=== PATIENT | female | born 1955 | race Caucasian/White ===

== ENCOUNTER 2018-02-05 09:56 | Emergency (ER) | payer OTHER ==
[2018-02-05 10:04] VITALS: TEMP 98.3; BMI 34.8
--- NOTE | 2018-02-05 10:34 | PDOC ---
History of Present Illness - General Chief Complaint: Shortness of Breath Stated Complaint: SOB (PCP SENT) Time Seen by Provider: 02/05/18 10:10 History Source: Patient Exam Limitations: No Limitations - History of Present Illness Initial Comments: 02/05/18 10:57 Patient is a 62F with history of crohn's disease here today after being referred by her PCP for an abnormal EKG. Patient states that she went to her primary care office for a sore throat, cough and shortness of breath where she was diagnosed with pharyngitis and treated with azithromycin. An EKG was done which showed t-wave inversions in III and avf, unknown if this was new. Patient denies chest pain and states that she's been tolerating her secretions. Rapid strep was done that was negative at PCP office. Denies fevers, chills, nausea, vomiting. Endorses headache over past two days. No history of blood clots, did travel from [place] 3 days ago. Past History - Past Medical History Allergies/Adverse Reactions: Allergies Allergy/AdvReac Type Severity Reaction Status Date / Time No Known Allergies Allergy Verified 02/05/18 10:00 Home Medications: Ambulatory Orders Dextroamphetamine/Amphetamine [Adderall 10 mg Tablet] 10 mg PO BID 02/05/18 COPD: No GI Disorders: Yes (celiac) Other medical history: ADHD - Suicide/Smoking/Psychosocial Hx Smoking History: Former smoker Have you smoked in the past 12 months: No Information on smoking cessation initiated: No Hx Alcohol Use: No Drug/Substance Use Hx: No Review of Systems - Review of Systems Comments:: 02/05/18 11:02 GENERAL/CONSTITUTIONAL: No fever or chills. No weakness. HEAD, EYES, EARS, NOSE AND THROAT: No change in vision. Positive for sore throat. CARDIOVASCULAR: No chest pain. Positive for shortness of breath RESPIRATORY: Positive for cough. Negative for wheezing, or hemoptysis. GASTROINTESTINAL: No nausea, vomiting, diarrhea or constipation. GENITOURINARY: No dysuria, frequency, or change in urination. MUSCULOSKELETAL: No joint or muscle swelling or pain. No neck or back pain. SKIN: No rash NEUROLOGIC: Positive for headache. Negative for vertigo, loss of consciousness, or change in strength/sensation. ENDOCRINE: No increased thirst. No abnormal weight change HEMATOLOGIC/LYMPHATIC: No anemia, easy bleeding, or history of blood clots. ALLERGIC/IMMUNOLOGIC: No hives or skin allergy. *Physical Exam - Vital Signs Last Vital Signs Temp Pulse Resp BP Pulse Ox 98.3 F 89 17 151/108 98 02/05/18 10:00 02/05/18 10:00 02/05/18 10:00 02/05/18 10:00 02/05/18 10:00 ED Treatment Course - LABORATORY CBC & Chemistry Diagram: 02/05/18 10:21 02/05/18 11:00 - RADIOLOGY Radiology Studies Ordered: Category Date Time Status CHEST X-RAY PORTABLE* [RAD] Stat Radiology 02/05/18 10:22 Ordered Medical Decision Making - Medical Decision Making 02/05/18 11:03 Patient is a 62F with history of crohn's disease here today with upper respiratory infection symptoms. Vital signs stable and normal. EKG findings at PCP office mildly concerning. Will do cardiac workup with 1 trop, currently no chest pain. EKG shows normal sinus rhythm with normal rate, st inversions in III, aVF, V3, same as PCP office. No st elevations/depressions. Normal intervals. 02/05/18 12:04 Laboratory Tests 02/05/18 02/05/18 02/05/18 10:21 10:55 11:00 WBC 8.8 D Hgb 14.4 Plt Count 193 INR 1.02 Troponin I < 0.02 CBC normal. CMP reassuring. Trop undetectable. CXR shows no acute cardiopulmonary process. 02/05/18 12:07 Patient reassessed, continues to be chest pain free. Will discharge with return precautions and instruction to follow up with PCP. *DC/Admit/Observation/Transfer Diagnosis at time of Disposition: Nonspecific ST-T wave electrocardiographic changes - Discharge Dispostion Disposition: HOME Condition at time of disposition: Good Admit: No - Referrals Referrals: Blanca Chavis MD [Primary Care Provider] - - Patient Instructions Additional Instructions: You were seen today in the ED for EKG abnormalities. Your EKG did show changes, but your lab work and chest x-ray show no evidence of an acute event. Please follow up with your primary care provider this week. Please return if you have any new, worsening or concerning symptoms. - Post Discharge Activity
[2018-02-05 10:40] LABS: BASO % 0.6 % (0-2.0); EOS % 2.8 % (0-4.5); HEMATOCRIT 42.4 % (32.4-45.2); HEMOGLOBIN 14.4 GM/dL (10.7-15.3); LYMPH % 12.7 % (8-40); MCH 29.4 pg (25.7-33.7); MEAN CELL VOLUME 86.6 fl (80-96); MEAN PLT VOLUME 8.6 fl (7.5-11.1); MONO % 9.4 % (3.8-10.2); NEUT % 74.5 % (42.8-82.8); PLATELET COUNT 193 K/MM3 (134-434); RBC 4.89 M/mm3 (3.60-5.2); RDW 14.4 % (11.6-15.6); WHITE BLOOD COUNT 8.8 K/mm3 (4.0-10.0)
[2018-02-05] MEDS ORDERED: ACETAMINOPHEN 325 MG TABLET (FP) PO ONE (10:49)
[2018-02-05] MEDS ORDERED: ACETAMINOPHEN 325 MG TABLET (FP) ONE (10:59)
[2018-02-05 11:22] LABS: INR 1.02 (0.82-1.09); PROTHROMBIN TIME (PATIENT) 11.5 SEC (9.7-13.0)
[2018-02-05 11:22] LABS: ALBUMIN 3.8 g/dl (3.4-5.0); ANION GAP 5 (8-16); BLOOD UREA NITROGEN 11 mg/dL (7-18); CALCIUM 8.6 mg/dL (8.5-10.1); CHLORIDE 108 mmol/L (98-107); CO2 29 mmol/L (21-32); CREATININE 0.7 mg/dL (0.55-1.02); GLUCOSE,RANDOM 90 mg/dL (74-106); MAGNESIUM 2.3 mg/dL (1.8-2.4); POTASSIUM 3.8 mmol/L (3.5-5.1); SGOT/AST 28 U/L (15-37); SGPT/ALT 37 U/L (12-78); SODIUM 142 mmol/L (136-145)
[2018-02-05 11:25] LABS: ALK PHOS 126 U/L (45-117)
--- NOTE | 2018-02-05 12:14 | PDOC ---
Attending Attestation - Resident Resident Name: EricksonGene varela - ED Attending Attestation I have performed the following: I have examined & evaluated the patient, The case was reviewed & discussed with the resident, I agree w/resident's findings & plan - HPI HPI: 02/05/18 12:07 62-year-old female with no significant past medical history presents from family and he office for evaluation of EKG changes. Patient presented there for throat pain and laryngitis the last 1-2 days, was diagnosed with pharyngitis and prescribed antibiotics but an EKG was performed that showed T-wave inversions in 3 and aVF, there was no prior EKG available for for comparison so she was sent to the ED for evaluation. 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 She recently traveled to [place] and return last week but has no signs or symptoms of DVT. She has no associated cough with her throat pain. - Physicial Exam PE: 02/05/18 12:10 Vital signs are normal, O2 sat is normal Well-appearing, speaking full sentences, voice is a bit hoarse, oropharynx is erythematous Heart and lungs are clear No leg swelling or calf tenderness - Medical Decision Making 02/05/18 12:10 Patient seen and evaluated with the resident. I agree with the overall evaluation, assessment, and management with the following summary of visit: 62-year-old female with EKG changes from clinic, no cardiopulmonary complaints. Positive pharyngitis, otherwise exam is normal. Labs are within normal limits including troponin Chest x-ray is normal EKG shows persistent T-wave inversions in 3 and aVF, but no ST changes. There are no prior EKGs available for comparison. In light of isolated asymptomatic and nonspecific EKG changes, can follow-up with cardiology and a PCP. 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 Heart Score/ECG Review #1 ECG reviewed & interpreted by me at: 10:12 General ECG Interpretation: Sinus Rhythm, Normal Rate (85), Normal Intervals ( qtc 456), No acute ischemic changes (TWI III/AVF, V3.) Compared to previous ECG there are: Previous ECG unavail (EKG performed in office is unchanged)
[2018-02-05 12:30] VITALS: BP 135/89; PULSE 83
--- NOTE | 2018-02-05 12:37 | EKG ---
Test Reason : Blood Pressure : / mmHG Vent. Rate : 085 BPM Atrial Rate : 085 BPM P-R Int : 140 ms QRS Dur : 082 ms QT Int : 384 ms P-R-T Axes : 036 025 -17 degrees QTc Int : 456 ms NORMAL SINUS RHYTHM ISCHEMIA ABNORMAL ECG WHEN COMPARED WITH ECG OF 16-JUN-2016 01:31, T WAVE INVERSION NOW EVIDENT IN ANTERIOR LEADS Confirmed by NILSA RUSSELL MD ([id number]) on 02/05/2018 12:37:31 PM Referred By: Confirmed By:NILSA RUSSELL MD
== END 2018-02-05 12:30 | disposition home or self-care (01) ==
LOC: JER 09:56
DX: R94.31 Abnormal electrocardiogram [ECG] [EKG] (principal); J06.9 Acute upper respiratory infection, unspecified; K90.0 Celiac disease; K86.81 Exocrine pancreatic insufficiency
CPT/HCPCS: 36415; 71045-TC-FY; 80053; 82550; 83735; 84484; 85025; 85610; 93005; 93010; 99285-25

== ENCOUNTER 2019-10-18 08:45 | Emergency (ER) | payer OTHER ==
[2019-10-18 09:00] VITALS: BP 132/93; PULSE 86; TEMP 97.5; BMI 36.5
--- NOTE | 2019-10-18 09:40 | PDOC ---
History of Present Illness - General Chief Complaint: Wound Stated Complaint: RT HAND INFECTION Time Seen by Provider: 10/18/19 09:06 History Source: Patient Exam Limitations: No Limitations - History of Present Illness Initial Comments: 10/18/19 09:35 Pt is a 64 y/o female with a history of celiac disease who presents to the ED with a R middle finger infection that she states started on 09/20/19. She states that she was "impalled" with a wood sliver on the R middle finger, palmar aspect. She states that her daughter tried to remove the sliver but was unsuccessful. She admits her daughter used a "surgical knife" and cut about 1/ 2 deep without any success. She states she had an infection in her hand which she cured with warm soaks. She saw her primary doctor today and was told to come to the ED for an I&D. She denies any fevers or chills. She denies any drainage from the wound. She denies any pain with ROM of her R hand or fingers. She is not diabetic. Past History - Past Medical History Allergies/Adverse Reactions: Allergies Allergy/AdvReac Type Severity Reaction Status Date / Time No Known Allergies Allergy Verified 10/18/19 08:56 Home Medications: Ambulatory Orders Bupropion HCl [Bupropion Xl] 150 mg PO DAILY 10/18/19 Paroxetine HCl 20 mg PO DAILY 10/18/19 Sulfamethoxazole/Trimethoprim [Bactrim Ds Tablet] 1 each PO BID #14 tablet 10/18 COPD: No GI Disorders: Yes (celiac) - Immunization History Immunization Up to Date: Yes - Psycho Social/Smoking Cessation Hx Smoking History: Never smoked Have you smoked in the past 12 months: No Hx Alcohol Use: No Drug/Substance Use Hx: No Review of Systems - Review of Systems Comments:: 10/18/19 09:40 - Review of Systems Able to Perform ROS?: Yes Constitutional: No: Fever, Chills, Loss of Appetite, Night Sweats, Weakness Respiratory: No: Cough, Shortness of Breath, Wheezing, Sputum Production Cardiac (ROS): No: Chest Pain, Chest Tightness, Palpitations, Irregular Heart Beat, Edema ABD/GI: No: Nausea, Vomiting, Abdominal Pain, Diarrhea : No Dysuria, No Hematuria, No Frequency, No Urgency Musculoskeletal: No: Muscle Pain, Back Pain, Joint Pain, Muscle Weakness, Neck Pain Integumentary: No: Lesions, Rash; R hand middle finger abscess Neurological: No: Headache, Numbness, Tingling, Weakness, Speech Difficulties 10/18/19 09:43 *Physical Exam - Vital Signs Last Vital Signs Temp Pulse Resp BP Pulse Ox 97.5 F L 86 18 132/93 97 10/18/19 08:57 10/18/19 08:57 10/18/19 08:57 10/18/19 08:57 10/18/19 08:57 - Physical Exam 10/18/19 09:41 - Physical Exam General Appearance: Nourished, Appropriately Dressed, No Distress Neck: Supple, No Lymphadenopathy (R), No Lymphadenopathy (L), No Rigidity, No Decreased range of motion Respiratory/Chest: Lungs Clear, Normal Breath Sounds. No Respiratory Distress, No Accessory Muscle Use Cardiovascular: Regular Rhythm, Regular Rate, S1, S2 Musculoskeletal: Normal Inspection. No Decreased Range of Motion; Right middle finger middle phalanx region, palmar aspect with a 1 cm indurated lesion with minimal tenderness to palpation. No fluctuance. No red streaking. No erythema or warmth appreciated. Full range of motion of the right middle finger at the MCP, DIP and PIP. Sensation intact distally. No pain with range of motion. Normal range of motion of the remainder of the hand and fingers. Extremity: Normal Capillary Refill, Normal Inspection Integumentary: Normal Color, Dry. No Rash Neurologic: oxyacetylene welder II-XII NML intact, Fully Oriented, Alert, Normal Mood/Affect, Normal Response 10/18/19 09:42 Procedures - Incision and Drainage I&D Site: Right: Other (middle finger palmar) Betadine cleansed: Yes Blade Size: 23G needle Complications: none Dressing: Yes (bandaid) Progress: 10/18/19 09:44 red blood expressed ED Treatment Course - RADIOLOGY Radiology Studies Ordered: Category Date Time Status HAND- RIGHT [RAD] Stat Radiology 10/18/19 09:30 Ordered Medical Decision Making - Medical Decision Making 10/18/19 09:42 I have made a small puncture wound in the center of the right middle finger palmar lesion that only expressed red blood. There was no purulent drainage expressed. 10/18/19 09:56 Pt hand xray shows no acute radiopaque foreign body. We will refer the patient to hand surgery for further evaluation and treatment. I will start her on Bactrim as well. She should follow-up with the hand surgeon as soon as possible. She understands and agrees with this treatment and plan and she is stable for discharge. Discharge - Discharge Information Problems reviewed: Yes Clinical Impression/Diagnosis: Foreign body of right middle finger Condition: Stable Disposition: HOME - Additional Discharge Information Prescriptions: Sulfamethoxazole/Trimethoprim [Bactrim Ds Tablet] 1 each PO BID #14 tablet - Follow up/Referral Referrals: Blanca Chavis MD [Primary Care Provider] - London Becerril MD [Staff Physician] - 3 days (Follow up for R middle finger foreign body ) - Patient Discharge Instructions Patient Printed Discharge Instructions: DI for Removal of Foreign Body From Skin Additional Instructions: No foreign body was removed today but this may still occur with the hand surgeon. Follow-up with a hand surgeon above within the next few days. Take the antibiotics as prescribed and complete the entire course. Avoid picking at the wound or inserting any needles or other sharp objects into the wound. Keep the wound clean and dry. - Post Discharge Activity
== END 2019-10-18 10:07 | disposition home or self-care (01) ==
LOC: JERFT 08:45
PROC: 0H9GXZZ Drainage of Left Hand Skin, External Approach (ICD-10-PCS; principal; 2019-10-18)
DX: S61.223A Laceration with foreign body of left middle finger without damage to nail, initial encounter (principal); X58.XXXA Exposure to other specified factors, initial encounter; Y93.89 Activity, other specified; Y92.89 Other specified places as the place of occurrence of the external cause
CPT/HCPCS: 10120-25; 73130-TC-RT-FY; 99281-25

== ENCOUNTER 2022-11-23 07:55 | Emergency (ER) | payer OTHER ==
[2022-11-23 08:03] VITALS: RESP 18; TEMP 97.7; BMI 38.0
[2022-11-23 10:39] VITALS: BP 151/92; PULSE 67
== END 2022-11-23 10:40 | disposition home or self-care (01) ==
LOC: JER 07:55 → JERFT 07:55
DX: S62.102A Fracture of unspecified carpal bone, left wrist, initial encounter for closed fracture (principal); W00.9XXA Unspecified fall due to ice and snow, initial encounter
CPT/HCPCS: 73110-TC-LT-FY; 99283-25